=== PATIENT | female | born 2000 | race Caucasian/White ===

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

== ENCOUNTER 2023-01-07 10:11 | Emergency (ER) | payer OTHER ==
[~2023-01-07] VITALS: Ht 154.9 cm; Wt 122.5 kg
--- NOTE | 2023-01-07 11:36 | ED Hip Pain/Injury ---
General Chief Complaint: Hip/Pelvic Problems Stated Complaint: LT HIP PAIN | FALL Nursing Triage Note: PT AMB TO TRIAGE WITH COMPLAINT OF LEFT HIP PAIN. STATES SHE HAS BEEN HAVING HIP PAIN FOR A WHILE. STATES FELL THIS MORNING IN HER DORM AND PAIN HAS WORSENED. STATES IS PAINFUL TO SIT AND WALK. Source: patient Exam Limitations: no limitations History of Present Illness Date Seen by Provider: Jan 07, 2023 Time Seen by Provider: 11:23 Initial Comments 22-year-old female presents to the ER with complaint of left hip pain. She states that she has had this pain for several months, but today she fell which made the pain worse. She states the pain starts in her left buttock, radiates down the back of her leg to the back of her knee where it stops. She describes the pain as sharp and shooting. She denies saddle paresthesia and bowel and bladder incontinence. She is able to walk. Allergies and Home Medications Allergies Coded Allergies: Penicillins (Verified Allergy, Unknown, 01/07/23) Patient Home Medication List Home Medication List Reviewed: Yes Cyclobenzaprine HCl (Cyclobenzaprine HCl) 10 Mg Tablet, 10 MG PO Q8H PRN for MUSCLE SPASMS Prescribed by: Tammie Velazquez on 01/07/23 1225 Review of Systems Constitutional: see HPI Past Pmkqsts-Uykwig-Bbaobp Hx Patient Social History Tobacco Use?: No Use of E-Cig and/or Vaping dev: No Substance use?: No Alcohol Use?: No Pt feels they are or have been: No Physical Exam Vital Signs Vital Signs - First Documented 01/07/23 10:57 Pulse 96 Resp 20 B/P (MAP) 137/91 (106) Pulse Ox 98 O2 Delivery Room Air Capillary Refill : Less Than 3 Seconds Height, Weight, BMI Height: '" Weight: lbs. oz. kg; 51.00 BMI Method: General Appearance: No Apparent Distress, WD/WN Neck: Normal Inspection, Supple Cardiovascular: Regular Rate, Rhythm Respiratory: Lungs Clear, Normal Breath Sounds, No Accessory Muscle Use, No Respiratory Distress Back: No Vertebral Tenderness Extremity: Normal Range of Motion, Other (Mild pain with palpation of left gluteus, pain to palpation of left pelvis) Neurologic/Psychiatric: Alert, Normal Mood/Affect Skin: Normal Color, Warm/Dry Progress/Results/Core Measures Results/Orders My Orders Orders - TAMMIE WILLIS APRN Pelvis With Left Hip 2-3 Views (01/07/23 11:31) Ketorolac Injection (Ketorolac Injection (01/07/23 11:45) Medications Given in ED Current Medications Medications Dose Ordered Sig/Kishan Route Start Time Stop Time Status Last Admin Dose Admin Ketorolac Tromethamine 15 mg ONCE ONCE IM 01/07/23 11:45 01/07/23 11:46 DC 01/07/23 11:48 15 MG Vital Signs/I&O 01/07/23 01/07/23 10:57 12:34 Pulse 96 96 Resp 20 20 B/P (MAP) 137/91 (106) 137/91 Pulse Ox 98 98 O2 Delivery Room Air Room Air Blood Pressure Mean: 106 Progress Progress Note : Progress Note Patient seen and evaluated, resting comfortably in recliner, no acute distress. Based on exam and symptoms, this is sciatic nerve pain. Will obtain a hip and pelvis x-ray due to fall today, and patient having pain with palpation of the pelvic bones. Shot of Toradol ordered. Was going to order Norflex, but patient drove here, and I do not want her to be sedated while driving. 1223 x-ray reviewed. Negative for acute fracture results discussed with patient. Patient reports improved pain after Toradol. Will discharge with prescription for Flexeril. Discharge instructions and return precautions provided. Diagnostic Imaging Diagonstic Imaging: Xray Plain Films/CT/US/NM/MRI: pelvis, hip Comments [facility], [place] NAME: HERNESTOEUN R [facility] REC#: [id number] PT STATUS: REG ER : 2000 PHYSICIAN: TAMMIE WILLIS APRN ADMIT DATE: 01/07/23/ER Signed Date of Exam:01/07/23 PELVIS WITH LEFT HIP 2-3 VIEWS PELVIS WITH LEFT HIP 2-3 VIEWS INDICATION: Left hip pain COMPARISON: None available. TECHNIQUE: AP pelvis with AP and lateral views of the hip. FINDINGS: Alignment is normal. There is no acute fracture. No osteochondral lesion talar dome. No acetabular retroversion. Normal femoral head-neck offset. SI joints are normal. IMPRESSION: No acute fracture about the left hip. Dictated by: Dictated on workstation # [id number] Dict: 01/07/23 1158 Trans: 01/07/23 1159 [facility] [id number] Interpreted by: MARY ARROYO MD Electronically signed by: MARY ARROYO MD 01/07/23 1159 Departure Impression Primary Impression: Sciatica of left side Disposition: HOME, SELF-CARE Condition: Stable Departure-Patient Inst. Decision time for Depature: 12:23 Referrals: [facility] (PCP/Family) Primary Care Physician Patient Instructions: Sciatica Exercises Add. Discharge Instructions: You may take 800 mg of ibuprofen every 8 hours with food as needed for pain. You may take Flexeril every 8 hours as needed for pain. Attached are instructions for exercises for sciatica. Return for numbness or tingling in your groin or inner thighs, bowel or bladder incontinence, inability to walk, or any other new, concerning, or worsening symptoms. All discharge instructions reviewed with patient and/or family. Voiced understanding. Scripts Cyclobenzaprine HCl (Cyclobenzaprine HCl) 10 Mg Tablet 10 MG PO Q8H PRN for MUSCLE SPASMS, #20 TAB 0 Refills Prov: TAMMIE WILLIS APRN 01/07/23 TAMMIE WILLIS APRN Jan 07, 2023 11:36
[2023-01-07] MEDS ORDERED: KETOROLAC INJ 15 MG/ML VIAL IM ONE (11:45)
--- NOTE | 2023-01-07 12:01 | Diagnostic Imaging Report ---
PELVIS WITH LEFT HIP 2-3 VIEWS INDICATION: Left hip pain COMPARISON: None available. TECHNIQUE: AP pelvis with AP and lateral views of the hip. FINDINGS: Alignment is normal. There is no acute fracture. No osteochondral lesion talar dome. No acetabular retroversion. Normal femoral head-neck offset. SI joints are normal. IMPRESSION: No acute fracture about the left hip. Dictated by: Dictated on workstation # [id number]
[2023-01-07] MEDS ORDERED: CYCL10TA25 PO (12:25)
[2023-01-07 12:34] VITALS: BP 137/91
== END 2023-01-07 12:34 | disposition home or self-care (01) ==
LOC: EDUNIT# 10:11 → ER 10:15
DX: M54.32 Sciatica, left side (principal)

== ENCOUNTER 2023-02-26 01:52 | Emergency (ER) | payer OTHER ==
[~2023-02-26] VITALS: Ht 167 cm; Wt 74.0 kg
[~2023-02-26 01:52] MED LIST: CYCL10TA25 PO
[2023-02-26 02:05] LABS: BASOPHILS % (AUTO) 0 % (0-10); EOSINOPHILS # (AUTO) 0.1 10^3/uL (0.0-0.3); EOSINOPHILS % (AUTO) 1 % (0-10); HEMATOCRIT 37 % (35-52); HEMOGLOBIN 12.1 g/dL (11.5-16.0); LYMPHOCYTES # (AUTO) 2.9 10^3/uL (1.0-4.0); LYMPHOCYTES % (AUTO) 27 % (12-44); MEAN CORPUSCULAR HEMOGLOBIN 27 pg (25-34); MEAN CORPUSCULAR HGB CONC 33 g/dL (32-36); MEAN CORPUSCULAR VOLUME 84 fL (80-99); MEAN PLATELET VOLUME 8.5 fL (9.0-12.2); MONOCYTES # (AUTO) 0.6 10^3/uL (0.0-1.0); MONOCYTES % (AUTO) 5 % (0-12); NEUTROPHILS # (AUTO) 6.9 10^3/uL (1.8-7.8); NEUTROPHILS % (AUTO) 66 % (42-75); PLATELET COUNT 287 10^3/uL (130-400); WHITE BLOOD COUNT 10.5 10^3/uL (4.3-11.0)
[2023-02-26 02:17] LABS: ALBUMIN 4.4 GM/DL (3.2-4.5); CHLORIDE 107 MMOL/L (98-107); POTASSIUM 4.4 MMOL/L (3.6-5.0); SODIUM 139 MMOL/L (135-145)
--- NOTE | 2023-02-26 02:17 | ED General ---
General Chief Complaint: Altered Mental Status Stated Complaint: AMS Source of Information: Patient, EMS History of Present Illness Date Seen by Provider: Feb 26, 2023 Time Seen by Provider: 01:48 Initial Comments PT ARRIVES VIA EMS PT ARRIVES VIA EMS FOR ALTERED MENTAL STATUS AFTER EATING AN "EDIBLE" AND DRINKING AN UNKNOWN AMOUNT OF VODKA--BYSTANDERS TOLD EMS SHE HAD AT LEAST 1 FULL SHOT OF VODKA--IS UNKNOWN WHAT TIME THIS OCCURRED. PT WITH BLANK STARE AND WON'T TALK OR FOLLOW COMMANDS 0152--PT NOW SUDDENLY TALKING AND IS "SHAKING" AND VOICE IS "TREMULOUS"--THIS ALL STOPS WHEN DISTRACTED AND PT TALKS IN A NORMAL VOICE AND IS NOT HAVING "TREMORS" PT STATES "I COULDN'T TALK" " I COULDN'T MOVE" PT STATES SHE HAS HAD "GUMMIES" BEFORE AND HAS NOT HAD THIS REACTION SHE STATES SHE DOES NOT DRINK VERY OFTEN AND ONLY HAD "ONE SIP" OF VODKA TONIGHT. SHE DENIES ANY OTHER DRUG USE STATES SHE DRINKS "COUPLE OF TIMES A MONTH" LMP--UNKNOWN--" COUPLE OF MONTHS" --PT STATES SHE HAS PCOS AND PERIODS ARE VERY IRREGULAR. SHE IS PRESCRIBED CONTROL PILLS , AND METFORMIN, BUT FREQUENTLY FORGETS TO TAKE THEM SHE STATES SHE FREQUENTLY FORGETS TO TAKE ALL OF HER MEDICATIONS. SHE HAS BEEN DX WITH DEPRESSION/ANXIETY AND DIABETES/PRE-DIABETES. PT IS [employer] STUD[employer] FROM [place], [place]. SHE HAS BEEN AT [employer] X 3 YEARS Allergies and Home Medications Allergies Coded Allergies: Penicillins (Verified Allergy, Unknown, 01/07/23) Patient Home Medication List Home Medication List Reviewed: Yes Cyclobenzaprine HCl (Cyclobenzaprine HCl) 10 Mg Tablet, 10 MG PO Q8H PRN for MUSCLE SPASMS Prescribed by: Tammie Velazquez on 01/07/23 1225 Review of Systems Review of Systems Constitutional: no symptoms reported EENTM: no symptoms reported Respiratory: no symptoms reported Cardiovascular: no symptoms reported Gastrointestinal: no symptoms reported Genitourinary: no symptoms reported Musculoskeletal: no symptoms reported Skin: no symptoms reported Psychiatric/Neurological: See HPI, Other (PT STATES SHE HAS "TICS" OF HER FACE AND HANDS, AND "IS SUPPOSED TO BE GETTING A CAT SCAN SOMETIME" BUT THIS HAS NOT BEEN SCHEDULED. ) Hematologic/Lymphatic: No Symptoms Reported Immunological/Allergic: no symptoms reported Past Oydcdwf-Msuyok-Gzhisr Hx Patient Social History Tobacco Use?: No Use of E-Cig and/or Vaping dev: No Substance use?: Yes Substance type: Marijuana Substance frequency: Once in a while Alcohol Use?: Yes Alcohol Frequency: Once in a while ("COUPLE OF TIMES A MONTH" ) Past Medical History Surgeries: Yes (BMT'S MULTIPLE SETS; EAR DRUM PATCH/RECONSTRUCTION) Ear Surgery Respiratory: No Cardiac: No Neurological: No Reproductive Disorders: Yes Female Reproductive Disorders: Menstrual Problems, Polycystic Ovarian Dis Genitourinary: No Gastrointestinal: No Musculoskeletal: Yes (SCIATICA) Endocrine: Yes ("PRE-DIABETES"; OBESITY) Diabetes, Non-Insulin dep HEENT: Yes (MULTIPLE EAR SURGERIES) Chronic Ear Infection Cancer: No Psychosocial: Yes Anxiety, Depression Integumentary: Yes (MRSA) Blood Disorders: No Physical Exam Vital Signs Vital Signs - First Documented 02/26/23 01:52 Temp 36.9 Pulse 105 Resp 18 B/P (MAP) 127/85 (99) Pulse Ox 100 O2 Delivery Room Air Capillary Refill : Height, Weight, BMI Height: '" Weight: lbs. oz. kg; 51.00 BMI Method: General Appearance: WD/WN, Anxious HEENT: PERRL/EOMI, Normal ENT Inspection Neck: Normal Inspection Respiratory: Normal Breath Sounds, No Accessory Muscle Use, No Respiratory Distress Cardiovascular: No Edema, No Murmur, Normal Peripheral Pulses, Tachycardia Gastrointestinal: Non Tender, Soft Back: No CVA Tenderness Extremity: Normal Inspection Neurologic/Psychiatric: Alert, No Motor/Sensory Deficits, chief operating engineer II-XII Norm as Tested, Other (MENTATION NOTED ABOVE) Skin: Normal Color, Warm/Dry, Tattoos/Piercings Progress/Results/Core Measures Suspected Sepsis SIRS Temperature: Pulse: Respiratory Rate: Laboratory Tests 02/26/23 01:55: White Blood Count 10.5 Blood Pressure / Mean: Laboratory Tests 02/26/23 01:55: Creatinine 0.91, Platelet Count 287, Total Bilirubin 0.5 Results/Orders Lab Results Laboratory Tests Test 02/26/23 01:55 02/26/23 01:56 02/26/23 03:30 Range/Units White Blood Count 10.5 4.3-11.0 10^3/uL Red Blood Count 4.42 3.80-5.11 10^6/uL Hemoglobin 12.1 11.5-16.0 g/dL Hematocrit 37 35-52 % Mean Corpuscular Volume 84 80-99 fL Mean Corpuscular Hemoglobin 27 25-34 pg Mean Corpuscular Hemoglobin Concent 33 32-36 g/dL Red Cell Distribution Width 13.7 10.0-14.5 % Platelet Count 287 130-400 10^3/uL Mean Platelet Volume 8.5 L 9.0-12.2 fL Immature Granulocyte % (Auto) 0 % Neutrophils (%) (Auto) 66 42-75 % Lymphocytes (%) (Auto) 27 12-44 % Monocytes (%) (Auto) 5 0-12 % Eosinophils (%) (Auto) 1 0-10 % Basophils (%) (Auto) 0 0-10 % Neutrophils # (Auto) 6.9 1.8-7.8 10^3/uL Lymphocytes # (Auto) 2.9 1.0-4.0 10^3/uL Monocytes # (Auto) 0.6 0.0-1.0 10^3/uL Eosinophils # (Auto) 0.1 0.0-0.3 10^3/uL Basophils # (Auto) 0.0 0.0-0.1 10^3/uL Immature Granulocyte # (Auto) 0.0 0.0-0.1 10^3/uL Sodium Level 139 135-145 MMOL/L Potassium Level 4.4 3.6-5.0 MMOL/L Chloride Level 107 98-107 MMOL/L Carbon Dioxide Level 22 21-32 MMOL/L Anion Gap 10 5-14 MMOL/L Blood Urea Nitrogen 10 7-18 MG/DL Creatinine 0.91 0.60-1.30 MG/DL Estimat Glomerular Filtration Rate 92 BUN/Creatinine Ratio 11 Glucose Level 132 H 70-105 MG/DL Calcium Level 9.6 8.5-10.1 MG/DL Corrected Calcium 9.3 8.5-10.1 MG/DL Magnesium Level 2.1 1.6-2.4 MG/DL Total Bilirubin 0.5 0.1-1.0 MG/DL Aspartate Amino Transf (AST/SGOT) 22 5-34 U/L Alanine Aminotransferase (ALT/SGPT) 19 0-55 U/L Alkaline Phosphatase 89 40-136 U/L Total Protein 7.8 6.4-8.2 GM/DL Albumin 4.4 3.2-4.5 GM/DL Serum Test, Qualitative NEGATIVE NEGATIVE Salicylates Level < 5.0 L 5.0-20.0 MG/DL Acetaminophen Level < 10 L 10-30 UG/ML Serum Alcohol < 10 <10 MG/DL Glucometer 129 H 70-110 MG/DL Urine Color YELLOW Urine Clarity CLEAR Urine pH 5.5 5-9 Urine Specific Rudd >=1.030 1.016-1.022 Urine Protein NEGATIVE NEGATIVE Urine Glucose (UA) NEGATIVE NEGATIVE Urine Ketones TRACE H NEGATIVE Urine Nitrite NEGATIVE NEGATIVE Urine Bilirubin NEGATIVE NEGATIVE Urine Urobilinogen 0.2 < = 1.0 MG/DL Urine Leukocyte Esterase NEGATIVE NEGATIVE Urine RBC (Auto) 1+ H NEGATIVE Urine RBC 2-5 H /HPF Urine WBC NONE /HPF Urine Squamous Epithelial Cells 2-5 /HPF Urine Crystals NONE /LPF Urine Bacteria TRACE /HPF Urine Casts NONE /LPF Urine Mucus MODERATE H /LPF Urine Culture Indicated NO Urine Opiates Screen NEGATIVE NEGATIVE Urine Oxycodone Screen NEGATIVE NEGATIVE Urine Methadone Screen NEGATIVE NEGATIVE Urine Barbiturates Screen NEGATIVE NEGATIVE Ur Tricyclic Antidepressants Screen NEGATIVE NEGATIVE Urine Phencyclidine Screen NEGATIVE NEGATIVE Urine Amphetamines Screen NEGATIVE NEGATIVE Urine Methamphetamines Screen NEGATIVE NEGATIVE Urine Benzodiazepines Screen NEGATIVE NEGATIVE Urine Cocaine Screen NEGATIVE NEGATIVE Urine Cannabinoids Screen POSITIVE H NEGATIVE My Orders Orders - VIRGINIA MORRIS DO Ed Iv/Invasive Line Start (02/26/23 01:57) Monitor-Rhythm Ecg Trace Only (02/26/23 01:57) Ct Head Wo (02/26/23 01:57) Acetaminophen (02/26/23:57) Alcohol (02/26/23:57) Cbc And Automated Diff (02/26/23:57) Comprehensive Metabolic Panel (02/26/23:57) Drug Screen Stat (Urine) (02/26/23 01:57) Hcg,Qualitative Serum (02/26/23:57) Magnesium (02/26/23:57) Salicylate (02/26/23:57) Ua Culture If Indicated (02/26/23 01:57) Vital Signs/I&O 02/26/23 01:52 Temp 36.9 Pulse 105 Resp 18 B/P (MAP) 127/85 (99) Pulse Ox 100 O2 Delivery Room Air Capillary Refill : Progress Note : Progress Note VITALS ON ARRIVAL: TEMP 36.9=98.4, HR 105, RR 18, BP 127/85, O2 SAT 100% ON ROOM AIR LABS: -CBC NORMAL -CMP NORMAL -HCG NEGATIVE -ETOH-NEGATIVE -UDS +MARIJUANA -UA-FEW RBC'S -SALICYLATES-NEGATIVE -ACETAMINOPHEN-NEGATIVE CT HEAD UNREMARKABLE / NO ACUTE PROCESS MARKED DELAY IN OBTAINING CT HEAD RESULTS, MULTIPLE CALLS TO RADIOLOGY DEPT. 0215--FRIEND IN ROOM WITH PT, AND PT IS TALKING RAPIDLY AND NORMALLY, AND NO TREMORS. 0330--GRANDMOTHER ARRIVES LATER AND IS IN ROOM WITH PT. BEHAVIORS RETURN WHEN GRANDMA IS IN ROOM--"SHAKING" AND "CAN'T MOVE" --AGAIN THESE STOP WHEN DISTRACTED AND PT IS ABLE TO GET UP TO BEDSIDE COMMODE AND BACK INTO BED ON HER OWN. VITALS STABLE PT ASYMPTOMATIC AT DISMISSAL DISCUSSED TEST RESULTS, ANTICIPATED COURSE,SYMPTOMATIC TREATMENT, NEED FOR FOLLOW UP AND RETURN PRECAUTIONS Diagnostic Imaging Comments CT HEAD--PER [facility] REPORT AT 0619 FINDINGS: No intracranial hemorrhage. No intracranial mass, mass effect, midline shift, herniation, hydrocephalus, or extra-axial fluid collection. No CT evidence of an acute ischemic infarction. The orbits are unremarkable. Opacification within the anterior right ethmoid air cells. Otherwise, the paranasal sinuses are clear. The calvarium is intact. IMPRESSION: No acute intracranial abnormality. Mucosal thickening versus polyp versus mucous retention cyst within the anterior right ethmoid air cells. Mucocele felt less likely. Reviewed: Reviewed by Me Departure Impression Primary Impression: Marijuana use Disposition: 01 HOME, SELF-CARE Condition: Stable Departure-Patient Inst. Decision time for Depature: 06:19 Referrals: [facility] (PCP/Family) Primary Care Physician Patient Instructions: Marijuana Use and Addiction (DC), ALCOHOL AND SUBSTANCE A BUSE Add. Discharge Instructions: NO DRUGS NO ALCOHOL FOLLOW UP WITH [facility] NEEDED All discharge instructions reviewed with patient and/or family. Voiced understanding. VIRGINIA MORRIS DO Feb 26, 2023 02:17
[2023-02-26 02:19] LABS: CALCIUM 9.6 MG/DL (8.5-10.1)
[2023-02-26 02:20] LABS: GLUCOSE 132 MG/DL (70-105); TOTAL PROTEIN 7.8 GM/DL (6.4-8.2)
[2023-02-26 02:21] LABS: CARBON DIOXIDE 22 MMOL/L (21-32)
[2023-02-26 02:22] LABS: BILIRUBIN,TOTAL 0.5 MG/DL (0.1-1.0)
[2023-02-26 02:24] LABS: ALKALINE PHOSPHATASE 89 U/L (40-136); CREATININE SERUM 0.91 MG/DL (0.60-1.30); GFR ESTIMATED 92
[2023-02-26 02:25] LABS: ACETAMINOPHEN < 10 UG/ML (10-30); BUN/CREATININE RATIO 11
[2023-02-26 02:26] LABS: SALICYLATE < 5.0 MG/DL (5.0-20.0)
[2023-02-26 02:27] LABS: ALANINE AMINOTRANSFERASE 19 U/L (0-55); MAGNESIUM 2.1 MG/DL (1.6-2.4)
[2023-02-26 03:52] LABS: AMPHETAMINE SCREEN, URINE NEGATIVE (NEGATIVE); BARBITURATE SCREEN URINE NEGATIVE (NEGATIVE); CANNABINOID SCREEN, URINE POSITIVE (NEGATIVE); CLARITY,URINE CLEAR; COCAINE SCREEN URINE NEGATIVE (NEGATIVE); COLOR,URINE YELLOW; METHADONE STAT NEGATIVE (NEGATIVE); OPIATE SCREEN URINE NEGATIVE (NEGATIVE); OXYCODONE STAT NEGATIVE (NEGATIVE); PH,URINE 5.5 (5-9); TRICYCLIC ANTIDEPRESSANTS SCRE NEGATIVE (NEGATIVE)
[2023-02-26 03:53] LABS: BACTERIA,URINE TRACE /HPF; BILIRUBIN,URINE NEGATIVE (NEGATIVE); GLUCOSE, URINE (UA) NEGATIVE (NEGATIVE); KETONES,URINE TRACE (NEGATIVE); LEUKOCYTE ESTERASE ,URINE NEGATIVE (NEGATIVE); NITRITE,URINE NEGATIVE (NEGATIVE); PROTEIN,URINE NEGATIVE (NEGATIVE)
--- NOTE | 2023-02-26 06:18 | Diagnostic Imaging Report ---
PROCEDURE: CT head without contrast. TECHNIQUE: Multiple contiguous axial images were obtained through the brain without the use of intravenous contrast. Auto Exposure Controls were utilized during the CT exam to meet ALARA standards for radiation dose reduction. INDICATION: Altered mental status, confusion. COMPARISON: None available. FINDINGS: No intracranial hemorrhage. No intracranial mass, mass effect, midline shift, herniation, hydrocephalus, or extra-axial fluid collection. No CT evidence of an acute ischemic infarction. The orbits are unremarkable. Opacification within the anterior right ethmoid air cells. Otherwise, the paranasal sinuses are clear. The calvarium is intact. IMPRESSION: No acute intracranial abnormality. Mucosal thickening versus polyp versus mucous retention cyst within the anterior right ethmoid air cells. Mucocele felt less likely. Dictated by: Dictated on workstation # [id number]
[2023-02-26 06:35] VITALS: BP 127/66
== END 2023-02-26 06:35 | disposition home or self-care (01) ==
LOC: EDUNIT# 01:52 → ER 01:54
DX: F12.90 Cannabis use, unspecified, uncomplicated (principal); E66.9 Obesity, unspecified; Z68.43 Body mass index [BMI] 50.0-59.9, adult
CPT/HCPCS: 70450; 80053; 80306; 81000; 82947; 83735; 84703; 85025; 93041; 99284; G0480 ×3; 36415; 80320; 80329